=== PATIENT | female | born 1975 | race Two or more races ===

== ENCOUNTER 2021-06-12 13:38 | Emergency (ER) | payer MEDICAID ==
[~2021-06-12] VITALS: Ht 162.6 cm; Wt 48.1 kg
[2021-06-12 13:47] VITALS: BP 104/79
== END 2021-06-12 14:02 | disposition home or self-care (01) ==
LOC: ED 14:01
DX: K08.89 Other specified disorders of teeth and supporting structures (principal); R11.0 Nausea; F17.210 Nicotine dependence, cigarettes, uncomplicated
CPT/HCPCS: 99283; 99406